=== PATIENT | female | born 1980 | race Caucasian/White ===

== ENCOUNTER 2018-08-25 18:48 | Emergency (ER) | payer BC, OTHER ==
[~2018-08-25] VITALS: Ht 167.6 cm; Wt 87.5 kg
[~2018-08-25 18:48] MED LIST: LEVOTHYROXINE100 MC1 PO
--- OUTSIDE RECORDS SUMMARY | 2018-08-25 18:50 | XMS REPORT | Summary of Care ---
Author Author Carrie Rey R.N. Unknown Address Unknown Phone Unavailable Care Team Providers Care Insurance Law Specialist Name Role Phone RASHEL FAJARDO Unavailable Unavailable SIMEON Hernandez, ALESSANDRA Unavailable Unavailable Carrie Rey R.N. Unavailable Unavailable Amparo Lucero MD Unavailable Unavailable GRETCHEN Hernandez, FLORENCIO Patel MD, Alessandra Unavailable Unavailable GRETCHEN SOLOMON ME, FLORENCIO CHAVIS Unavailable Unavailable Unavailable Unavailable Functional Status Name Dates Details Functional status health issues are not documented Status: Name Dates Details Cognitive status health issues are not documented Status: Problems Name Dates Details Acute sinusitis (461.9, J01.90) Status: Active Hypoglycemia (251.2, E16.2) Status: Active Myalgia and myositis (729.1) Status: Active Right shoulder pain (719.41, M25.511) Status: Active Diarrhea (787.91, R19.7) Status: Active Gastroenteritis (558.9, K52.9) Status: Active Anxiety disorder (300.00, F41.9) Status: Active Irregular menstrual cycle (626.4, N92.6) Status: Active Anxiety attack (300.01, F41.0) Status: Active Sprain of left shoulder, initial encounter (840.9, S43.402A) Status: Active Fatigue (780.79, R53.83) Status: Active Mastalgia in female (611.71, N64.4) Status: Active Galactorrhea in female (611.6, N64.3) Status: Active Insomnia (780.52, G47.00) Status: Active Chronic pain of left knee (719.46, M25.562) Status: Active Anxiety and depression (300.00, F41.9) Status: Active Moderate episode of recurrent major depressive disorder (296.32, F33.1) Status: Active Hypothyroidism (244.9, E03.9) Status: Active Tension type headache (339.10, G44.209) Status: Active Nausea (787.02, R11.0) Status: Active Allergic rhinitis due to pollen (477.0, J30.1) Status: Active Medications Name Dates Details Levothyroxine Sodium 150 MCG Oral Tablet TAKE 1 TABLET DAILY. Quantity: 90 SIMEON ALESSANDRA Hernandez * Start : 15-May-2015 Active Uogwjqdddk-KDON-Ahganjip 50-325-40 MG Oral Tablet TAKE 1 TABLET DAILY * Quantity: 30 Refills: 0 CONN P.A., RASHEL * Start : 12-May-2018 Active Ondansetron HCl - 8 MG Oral Tablet TAKE 1 TABLET EVERY 8 HOURS PRN * Quantity: 15 Refills: 1 CONN P.A., RASHEL * Start : 12-May-2018 Active predniSONE 10 MG Oral Tablet take 3 po x 3 days then 2 po x3 days then 1 po x 3 days * Quantity: 18 Refills: 0 CONN P.A., RASHEL * Start : 12-May-2018 Active Allergies and Adverse Reactions Name Dates Details No Known Allergies (Allergy) Status: Active Past Medical History Name Dates Details History of Dysthymic Disorder (V11.2) Status: Resolved History of earache (V12.49, Z86.69) Status: Resolved History of headache (V13.89, Z87.898) Status: Resolved History of Osteoarthritis (V13.4) Status: Resolved History of pharyngitis (V12.69, Z87.09) Status: Resolved Personal history of urinary tract infection (V13.02, Z87.440) Status: Resolved Procedures Procedure Dates Details History of Neuroplasty Decompression Median Nerve At Carpal Tunnel Completed History of Cholecystectomy Completed History of Tubal Ligation Completed Immunization Name Dates Details Immunizations not documented Family History Name Dates Details Family history of Diabetes Mellitus (V18.0) Status: Active Family history of Rheumatoid Arthritis Status: Active Family history of cardiac disorder (V17.49, Z82.49) Status: Active Name Dates Details Family history of Hypertension (V17.49) Status: Active Social History Name Dates Details - Status: Name Dates Details Current every day smoker Vital Signs Date Test Result Details [id number] Physical Findings 5 Status: Comments: PHQ-9 Adult Depression Screening [id number] Physical Findings 0 Status: Comments: Alcohol Screen - How many times in the past yr have you had 5 (for M) or 4 (for F) or 4 (for all > 65yrs) or more drinks in a day? [id number] BP Systolic 145 mm[Hg] Status: Comments[place] [facility] [place] BP Diastolic 93 mm[Hg] Status: Comments: [place] [facility] [place]: [place]itting Height 65 in Status: Weight 240.5 lb Status: Body Mass Index Calculated 40.02 kg/m2 Status: Body Surface Area Calculated 2.14 m2 Status: Temperature 97.8 f Status: Comments: Method: Temporal Heart Rate 80 /min Status: Respiration Rate 16 /min Status: Results Date Description Value Details Results not documented Plan of Care Name Dates Details Planned Observations Planned Goals not documented Planned Encounters Appointment; ALESSANDRA PATEL M.D. On: 28-May-2018 8:00 Interventions Provided Discussion/Summary* Guideline Used: * Other: speak with clinic staff * Intended Caller Action: * Other: have labs populated in portal Instructions Name Dates Details Instructions not documented Encounters Appointment; ED KHAN NP Encounter Diagnosis: Problem not documented On: 26-Sep-2016 11:00 Appointment; ED KHAN NP Encounter Diagnosis: Problem not documented On: 06-Nov-2016 11:30 Appointment; LIDYA WEST M.D. Encounter Diagnosis: Problem not documented On: 18-Aug-2017 15:45 Appointment; ALESSANDRA PATEL M.D. Encounter Diagnosis: Problem not documented On: 16-Oct-2017 15:30 Appointment; ALESSANDRA PATEL M.D. Encounter Diagnosis: Problem not documented On: 11-Mar-2018 16:00 Appointment; RASHEL CONN P.A. Encounter Diagnosis: Problem not documented On: 12-May-2018 9:30
--- OUTSIDE RECORDS SUMMARY | 2018-08-25 18:50 | XMS REPORT | CCD ---
Author Author Auto Generated Organization [facility] [place] Address Unknown Phone Unavailable Care Team Providers Care Liner Machine Operator Name Role Phone Joseluis Tucker CP Allergies, Adverse Reactions, Alerts Substance Reaction Status NKDA Active
--- OUTSIDE RECORDS SUMMARY | 2018-08-25 18:50 | XMS REPORT | Continuity of Care Document ---
Author Author [facility] Organization [facility] Address Unknown Phone Unavailable Care Team Providers Care Cat Tender Name Role Phone [facility] Unavailable Unavailable Problems Problem Status Onset Date Classification Date Reported Comments Source 719.4 - PAIN IN JOINT Active 04/11/2011 [facility] Medications No Data Provided for This Section Allergies, Adverse Reactions, Alerts No Known Medication Allergies Immunizations No Data Provided for This Section Results No Data Provided for This Section Pathology Reports No Data Provided for This Section Diagnostic Reports No Data Provided for This Section Consultation Notes No Data Provided for This Section Discharge Summaries No Data Provided for This Section History and Physicals No Data Provided for This Section Vital Signs No Data Provided for This Section Encounters Location Location Details Encounter Type Encounter Number Reason For Visit Attending Provider ADM Date DC Date Status Source OD [id number] 719.4 - PAIN IN JOINT FLORENCIO GODINEZ 04/11/2011 Active [facility] Procedures No Data Provided for This Section Assessment and Plan No Data Provided for This Section Plan of Care No Data Provided for This Section Social History No Data Provided for This Section Family History No Data Provided for This Section Advance Directives No Data Provided for This Section Functional Status No Data Provided for This Section
[2018-08-25 20:14] LABS: BASOPHILS # (AUTO) 0.1 (0.0-0.1); EOSINOPHILS # (AUTO) 0.4 (0.0-0.4); EOSINOPHILS % 3.8 % (0.0-6.0); HEMATOCRIT 40.9 % (34.2-44.1); HEMOGLOBIN 13.4 g/dL (12.0-16.0); LYMPHOCYTES # (AUTO) 3.8 (1.0-3.2); LYMPHOCYTES % 33.3 % (18.0-39.1); MEAN CORPUSCULAR HGB CONC 32.8 g/dL (31-35); MEAN CORPUSCULAR VOLUME 82.3 fL (81-99); MONOCYTES # (AUTO) 0.7 (0.2-0.8); MONOCYTES % 6.5 % (4.4-11.3); NEUTROPHILS # (AUTO) 6.3 (2.1-6.9); NEUTROPHILS % 55.1 % (38.7-80.0); PLATELET COUNT 424 x10e3/uL (140-360); RED BLOOD COUNT 4.97 x10e6/uL (3.6-5.1); RED CELL DISTRIBUTION WIDTH 13.4 % (11.7-14.4)
[2018-08-25 20:25] LABS: ALANINE AMINOTRANSFERASE 22 IU/L (0-55); ALBUMIN 3.8 g/dL (3.5-5.0); ALKALINE PHOSPHATASE 61 IU/L (40-150); BLOOD UREA NITROGEN 9 mg/dL (7-26); BUN/CREATININE RATIO 11 (6-25); CALCIUM 9.3 mg/dL (8.4-10.2); CARBON DIOXIDE 28 mmol/L (22-29); CHLORIDE 102 mmol/L (98-107); CREATINE KINASE 195 IU/L (29-168); CREATININE, SERUM 0.83 mg/dL (0.57-1.11); EST GLOMERULAR FILTRATION RATE > 60 ML/MIN (60-); GLUCOSE 83 mg/dL (74-118); SODIUM 138 mmol/L (136-145)
--- NOTE | 2018-08-25 20:37 | Diagnostic Imaging Report ---
Examination: CT BRAIN WO CONTRAST History:Confusion Comparison studies:None Technique: Axial images were obtained from the skull base to the vertex. Coronal and sagittal images reconstructed from the axial data. Dose modulation, iterative reconstruction, and/or weight based adjustment of the mA/kV was utilized to reduce the radiation dose to as low as reasonably achievable. Intravenous contrast: None Findings: Scalp: No abnormalities. Bones: No fractures, blastic or lytic lesions. Brain sulci: Appropriate for age. Ventricles: Normal in size and configuration. No hydrocephalus. Extra-axial space: No abnormalities. Parenchyma: No abnormal densities. No masses, hemorrhage, or acute or chronic cortical based vascular insults.. Sellar/suprasellar region: No abnormalities. Craniocervical junction: Patent foramen magnum. No Chiari one malformation. Incidental findings: None. Impression: No intracranial abnormalities. Signed by: Dr. Cornelia Rea M.D. on 08/25/2018 8:34 PM
--- NOTE | 2018-08-25 20:41 | Diagnostic Imaging Report ---
EXAMINATION: CHEST 2 VIEWS INDICATION: ^CP, CONFUSION COMPARISON: None FINDINGS: PA and lateral views TUBES and LINES: None. LUNGS: Lungs are well inflated. Subtle left infrahilar airspace opacity. PLEURA: No pleural effusion or pneumothorax. HEART AND MEDIASTINUM: The cardiomediastinal silhouette is unremarkable. BONES AND SOFT TISSUES: No acute osseous lesion. Soft tissues are unremarkable. UPPER ABDOMEN: No free air under the diaphragm. IMPRESSION: Subtle left infrahilar airspace opacity, which may represent pneumonia. Signed by: Dr. Declan Lucero M.D. on 08/25/2018 8:37 PM
[2018-08-25 21:01] LABS: BILIRUBIN,URINE NEGATIVE (NEGATIVE); CLARITY,URINE CLEAR (CLEAR); COLOR,URINE YELLOW (YELLOW); KETONES,URINE NEGATIVE (NEGATIVE); LEUKOCYTE ESTERASE ,URINE NEGATIVE (NEGATIVE); NITRITE,URINE NEGATIVE (NEGATIVE); PROTEIN,URINE DIPSTICK NEGATIVE (NEGATIVE); URINE UROBILINOGEN 0.2 mg/dL (0.2 - 1)
[2018-08-25 21:05] LABS: AMPHETAMINES SCREEN,URINE NEGATIVE (NEGATIVE); BENZODIAZEPINES SCREEN,URINE NEGATIVE (NEGATIVE); PHENCYCLIDINE SCREEN,URINE NEGATIVE (NEGATIVE); PREGNANCY TEST, URINE NEGATIVE (NEGATIVE)
[2018-08-25 21:22] LABS: BACTERIA,URINE MODERATE /HPF; EPITHELIAL CELLS,URINE MODERATE /LPF; RBC,URINE 0-5 /HPF (0-5)
[2018-08-25] MEDS ORDERED: LEVOFLOXACIN 250 MG TAB PO ONE (22:30)
== END 2018-08-25 23:02 | disposition home or self-care (01) ==
LOC: ER 18:48
DX: R07.89 Other chest pain (principal); R05 Cough; J15.9 Unspecified bacterial pneumonia; E03.9 Hypothyroidism, unspecified; D89.89 Other specified disorders involving the immune mechanism, not elsewhere classified
CPT/HCPCS: 36415; 70450; 71046; 80053; 80307; 81001; 81025; 82550; 82553; 84484; 85025; 93005; 99284